=== PATIENT | male | born 1950 | race Caucasian/White ===

== ENCOUNTER 2019-10-27 08:07 | Emergency (ER) | payer MEDICARE, MEDICAID ==
[~2019-10-27] VITALS: Ht 180.3 cm; Wt 81.0 kg
[2019-10-27 08:09] VITALS: BP 156/84
== END 2019-10-27 10:12 | disposition home or self-care (01) ==
LOC: ER 08:23
DX: M25.552 Pain in left hip (principal); R07.81 Pleurodynia; V49.49XA Driver injured in collision with other motor vehicles in traffic accident, initial encounter; Y93.89 Activity, other specified; Y92.89 Other specified places as the place of occurrence of the external cause; Y99.8 Other external cause status; I10 Essential (primary) hypertension
CPT/HCPCS: 71101; 72100; 73502; 99284